=== PATIENT | female | born 1975 | race Hispanic/Latino ===

== ENCOUNTER 2018-10-25 15:00 | Emergency (ER) | payer OTHER ==
[2018-10-25 15:17] VITALS: BP 131/85
--- NOTE | 2018-10-25 15:18 | Emergency Department Report ---
Blank Doc - Documentation Documentation: N/V with SOB and stabbing pain on righ flank. This initial assessment diagnostic orders/clinical plan/treatment (s) is/Are subject change based on patient's health status, clinical progression and re- assessment by fellow clinical providers in the ED. Further treatment and work-up at subsequent clinical providers discretion. Patient/guardians urged not to elope from s their condition may be serious if not clinically assessed and managed. Inital order include:CBC,CMP,Lipase, UA, IV, CXR, CT Abd w/contrast
[2018-10-25 15:44] LABS: Basophils # (Auto) 0.1 K/mm3 (0.0-0.1); Basophils % (Auto) 0.7 % (0.0-1.8); Eosinophils # (Auto) 0.1 K/mm3 (0.0-0.4); Eosinophils % (Auto) 1.1 % (0.0-4.3); Hematocrit 39.2 % (30.3-42.9); Hemoglobin 13.6 gm/dl (10.1-14.3); Lymphocytes # (Auto) 1.3 K/mm3 (1.2-5.4); Lymphocytes % (Auto) 12.5 % (13.4-35.0); Mean Corpuscular HGB Conc 35 % (30-34); Mean Corpuscular Volume 91 fl (79-97); Monocytes # (Auto) 0.8 K/mm3 (0.0-0.8); Monocytes % (Auto) 7.8 % (0.0-7.3); Platelet Count 364 K/mm3 (140-440); Red Cell Distribution Width 13.5 % (13.2-15.2)
[2018-10-25 16:21] LABS: Alanine Aminotransferase 10 units/L (7-56); Albumin 4.2 g/dL (3.9-5); BUN/Creatinine Ratio 14; Blood Urea Nitrogen 11 mg/dL (7-17); Calcium 9.7 mg/dL (8.4-10.2); Hemolysis Index 6
[2018-10-25 16:25] LABS: Bilirubin,Urine NEG (Negative); Blood,Urine MOD (Negative); Color,Urine Red (Yellow); Mucus,Urine 3+ /HPF
[2018-10-25 16:26] LABS: Protein,Urine >500 mg/dL (Negative); RBC,Urine > 182.0 /HPF (0.0-6.0)
--- NOTE | 2018-10-25 17:43 | XRay Report ---
FINAL REPORT EXAM: XR CHEST 1V AP HISTORY: sob TECHNIQUE: Frontal portable examination of the chest PRIORS: None FINDINGS: There is no visible pulmonary consolidation. No evidence of pleural effusion. No radiographically visible pneumothorax. Cardiac silhouette size is normal without vascular congestion. No visible acute displaced fracture in the regional skeleton. IMPRESSION: No acute cardiopulmonary disease in the visualized chest
--- NOTE | 2018-10-25 19:05 | Cat Scan Report ---
FINAL REPORT EXAM: CT ABDOMEN PELVIS WO CON HISTORY: R flank pain with N/V TECHNIQUE: CT examination of the ABDOMEN without IV contrast CT examination of the PELVIS without IV contrast PRIORS: None. FINDINGS: Lung bases are clear. Slight degenerative change in the regional skeleton. Bilateral L5 spondylolysis. Grade 1 anterolisthesis at L5-S1 with severe disc narrowing. Normal noncontrast appearance of the liver, gallbladder, adrenals, pancreas, and spleen. Normal calib er abdominal aorta and IVC. Normal-appearing kidneys without calculus or hydronephrosis. No calculus or distention in the visible ureteral segments. Very small fat containing umbilical hernia. No inguinal hernia. No retroperitoneal adenopathy. No daija dence of mesenteric mass. Nonspecific diffuse mural thickening in the gastric antrum. Slight mural thickening in the duodenal b ulb and proximal duodenum. No small bowel distention in the abdomen and pelvis. No pelvic free fluid. Normal-appearing urinary b ladder, uterus, adnexae, and rectum. Normal-appearing sigmoid colon. No gross ascites, free air, or c olonic distention. Nonspecific prominence of stool, gas, and caliber in the ascending and transverse colon may reflect a combination of constipation with mild paralytic ileus. No focal abnormality in the region of the cecum, terminal ileum, and appendix. IMPRESSION: No CT evidence of urinary tract calculus or obstruction Mural thickening in gastric antrum and proximal duodenum may be edema, inflammation, or gastroduodeni tis. Consider also peptic ulcer disease or inflammatory bowel disease Prominent stool, gas, and caliber in the ascending and transverse colon may reflect a combination of constipation with mild paralytic ileus Bilateral L5 spondylolysis with grade 1 anterolisthesis and severe disc narrowing at L5-S1
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
[2018-10-25 20:30] LABS: HCG Qualitative,Urine Negative (Negative)
== END 2018-10-25 21:25 | disposition home or self-care (01) ==
LOC: ED 15:00
DX: R10.11 Right upper quadrant pain (principal); K59.00 Constipation, unspecified; F17.200 Nicotine dependence, unspecified, uncomplicated; Z98.51 Tubal ligation status; Z79.899 Other long term (current) drug therapy
CPT/HCPCS: 36415; 71045; 74176; 80053; 81001; 81025; 83690; 85025